=== PATIENT | male | born 1970 | race Caucasian/White ===

== ENCOUNTER 2018-08-13 10:45 | Emergency (ER) | payer SELFPAY ==
--- NOTE | 2018-08-13 12:04 | RADIOLOGY REPORT (SQ) ---
EXAM DESCRIPTION: FOOT RIGHT COMPLETE COMPLETED DATE/TIME: 08/13/2018 11:56 am REASON FOR STUDY: right foot pain at all toes COMPARISON: None. NUMBER OF VIEWS: Three views. TECHNIQUE: AP, lateral and oblique radiographic images acquired of the right foot. LIMITATIONS: None. FINDINGS: MINERALIZATION: Normal. BONES: No acute fracture or dislocation. No worrisome bone lesions. JOINTS: No effusions. SOFT TISSUES: No soft tissue swelling. No foreign body. OTHER: No other significant finding. IMPRESSION: NEGATIVE STUDY OF THE RIGHT FOOT. NO RADIOGRAPHIC EVIDENCE OF ACUTE INJURY. TECHNICAL DOCUMENTATION: JOB ID: [id number] [employer]- All Rights Reserved Reading location - IP/workstation name: [email or web address]
[2018-08-13 13:01] VITALS: BP 118/71
--- NOTE | 2018-08-13 13:13 | ER Document Report ---
HPI - HPI Time Seen by Provider: 08/13/18 11:27 Pain Level: 5 Notes: Patient is a 48-year-old male presenting to emergency department with complaints of right foot pain near his first and second toes that has been going on for approximately 3 months. He reports significant pain in the toes as well as some numbness and tingling. He also reports that there is been a foul-smelling drainage coming from his great toe. Patient denies any nausea, vomiting, diarrhea or fevers. Patient denies any history of diabetes. - CONSTITUTIONAL Constitutional: DENIES: Fever, Chills - MUSCULOSKELETAL Musculoskeletal: REPORTS: Extremity pain - right foot Past Medical History - General Information source: Patient - Social History Smoking Status: Current Every Day Smoker Frequency of alcohol use: Social Drug Abuse: Marijuana Family History: Reviewed & Not Pertinent Patient has suicidal ideation: No Patient has homicidal ideation: No - Medical History Medical History: Negative Renal/ Medical History: Denies: Hx Peritoneal Dialysis Past Surgical History: Reports: Hx Appendectomy, Hx Orthopedic Surgery - left elbow Vertical Provider Document - CONSTITUTIONAL Notes: PHYSICAL EXAMINATION: GENERAL: Well-appearing, well-nourished and in no acute distress. HEAD: Atraumatic, normocephalic. EYES: Pupils equal round extraocular movements intact, conjunctiva are normal. ENT: Nares patent NECK: Normal range of motion LUNGS: No respiratory distress Musculoskeletal: Normal range of motion, normal dorsalis pedis pulse. NEUROLOGICAL: Normal speech, normal gait. PSYCH: Normal mood, normal affect. SKIN: Erythema noted to right great and second toes. There is no streaking from the area. There is some yellowish drainage coming from underneath the great toe nailbed. - INFECTION CONTROL TRAVEL OUTSIDE OF THE [place] IN LAST 30 DAYS: No Course - Re-evaluation Re-evalutation: Patient is nontoxic appearing and his examination is consistent with cellulitis. Patient also has what appears to be a fungal infection underneath his nails. Patient will be started on p.o. antibiotics as well as antifungals. Patient highly encouraged to follow-up with a hoop flaring machine operator helper. A referral was given. - Vital Signs Vital signs: Temp Pulse Resp BP Pulse Ox 98.0 F 86 16 118/71 96 08/13/18 13:00 08/13/18 13:00 08/13/18 13:00 08/13/18 13:00 08/13/18 13:00 Discharge - Discharge Clinical Impression: Nail fungal infection Foot pain Qualifiers: Laterality: right Qualified Code(s): M79.671 - Pain in right foot Cellulitis Qualifiers: Site of cellulitis: other site Qualified Code(s): L03.818 - Cellulitis of other sites Condition: Stable Disposition: HOME, SELF-CARE Additional Instructions: Please take medications as prescribed continue to do Epsom salts soaks at least 3 times daily. Follow-up with the [facility] and/or the hoop flaring machine operator helper for follow-up. Call today to schedule an appointment. Return to the emergency department for any new or worsening symptoms to include worsening redness, red streaking from the area or increased swelling. Prescriptions: Cephalexin [Cephalexin 500 MG Tablet] 1 tab PO QID #40 tablet Fluconazole [Diflucan 100 Mg Tablet] 100 mg PO DAILY #7 tablet Forms: Return to Work Referrals: CODI CONNER DPM [ACTIVE STAFF] - Follow up as needed
== END 2018-08-13 13:27 | disposition home or self-care (01) ==
LOC: ER 10:45
DX: B35.1 Tinea unguium (principal); L03.818 Cellulitis of other sites; M79.671 Pain in right foot; R20.0 Anesthesia of skin; F17.200 Nicotine dependence, unspecified, uncomplicated
CPT/HCPCS: 82962; 99283

== ENCOUNTER 2019-02-02 15:07 | Emergency (ER) | payer SELFPAY ==
--- NOTE | 2019-02-02 15:22 | ER Document Report ---
ED Medical Screen (RME) - General Chief Complaint: Foot Pain Stated Complaint: RIGHT FOOT PAIN Time Seen by Provider: 02/02/19 15:19 Mode of Arrival: Carried Information source: Patient Notes: 39-year-old male presented to ED for complaint of pain to the to the front of his right foot all 5 toes. He states it is been getting progressively worse over the last several months. He states it feels like it is riding in a will have to get his foot cut off if something does not get done to stop it. He is alert oriented respirations regular nonlabored speaking in full sentences. He states that has a foul odor and it is keeping him awake at night. He states he does not have any history of diabetes or any other medical problems. He states he was saw in [place] about a month ago and they gave him some antibiotics he states the antibodies did not make any difference. I have greeted and performed a rapid initial assessment of this patient. A comprehensive ED assessment and evaluation of the patient, analysis of test results and completion of medical decision making process will be conducted by an additional ED providers. TRAVEL OUTSIDE OF THE [place] IN LAST 30 DAYS: No - Related Data Allergies/Adverse Reactions: No Known Allergies Allergy (Unverified 08/13/18 10:55) Past Medical History Renal/ Medical History: Denies: Hx Peritoneal Dialysis Past Surgical History: Reports: Hx Appendectomy, Hx Orthopedic Surgery - left elbow
--- NOTE | 2019-02-02 15:55 | RADIOLOGY REPORT (SQ) ---
EXAM DESCRIPTION: FOOT RIGHT COMPLETE COMPLETED DATE/TIME: 02/02/2019 3:44 pm REASON FOR STUDY: pain and swelling to great toe COMPARISON: None. NUMBER OF VIEWS: Two views. TECHNIQUE: AP and lateral without weight bearing radiographic images acquired of the right foot. LIMITATIONS: None. FINDINGS: MINERALIZATION: Normal. BONES: No acute fracture or dislocation. No worrisome bone lesions. No significant osteophytes. JOINTS: No erosions. No yara-articular osteopenia. No chondrocalcinosis. SOFT TISSUES: No swelling. No calcifications. OTHER: No other significant finding. IMPRESSION: NO SIGNIFICANT RADIOGRAPHIC ABNORMALITY. TECHNICAL DOCUMENTATION: JOB ID: [id number] [employer]- All Rights Reserved Reading location - IP/workstation name: [email or web address]
[2019-02-02] MEDS ORDERED: LIDOCAINE 1% INJ-PF (10 MG/ML) 30 ML SDV INJ ONE (16:23)
--- NOTE | 2019-02-02 16:23 | ER Document Report ---
HPI - HPI Time Seen by Provider: 02/02/19 15:19 Pain Level: 3 Context: Patient is a 48-year-old male who presents the emergency department with a chief complaint of right toes pain. This has been an ongoing problem for the past few months. He was seen here in the emergency department and again in [place]. He states that he continues to have pain although he has been on antibiotics. Patient also has an ingrown toe nail on his right great toe. Patient states vicky t he is not diabetic. - CONSTITUTIONAL Constitutional: DENIES: Fever, Chills - EENT EENT: DENIES: Sore Throat, Ear Pain - NEURO Neurology: DENIES: Headache, Weakness - RESPIRATORY Respiratory: DENIES: Trouble Breathing, Coughing - GASTROINTESTINAL Gastrointestinal: DENIES: Abdominal Pain, Nausea - REPRODUCTIVE Reproductive: DENIES: : - MUSCULOSKELETAL Musculoskeletal: REPORTS: Extremity pain - Right toes - DERM Skin Color: Normal Skin Problems: Rash - Right toes Notes: Right great toe lateral ingrown toenail Past Medical History - General Information source: Patient - Social History Smoking Status: Unknown if Ever Smoked Frequency of alcohol use: None Drug Abuse: None Family History: Reviewed & Not Pertinent Patient has suicidal ideation: No Patient has homicidal ideation: No Renal/ Medical History: Denies: Hx Peritoneal Dialysis Past Surgical History: Reports: Hx Appendectomy, Hx Orthopedic Surgery - left elbow Vertical Provider Document - CONSTITUTIONAL Agree With Documented VS: Yes Exam Limitations: No Limitations General Appearance: No Apparent Distress - INFECTION CONTROL TRAVEL OUTSIDE OF THE [place] IN LAST 30 DAYS: No - HEENT HEENT: Atraumatic, Normocephalic, PERRLA - NECK Neck: Normal Inspection - RESPIRATORY Respiratory: No Respiratory Distress - CARDIOVASCULAR Cardiovascular: Regular Rate, Regular Rhythm Pulses: Normal: Posterior tibial, Dorsalis pedis - MUSCULOSKELETAL/EXTREMETIES Musculoskeletal/Extremeties: Tender - Right great toe - NEURO Level of Consciousness: Awake, Alert, Appropriate Motor/Sensory: No Motor Deficit, No Sensory Deficit - DERM Integumentary: Warm, Dry, Rash - Right toes Notes: Ingrown toenail of right great toe with small amount of purulent drainage at tip of toe. Course - Re-evaluation Re-evalutation: 02/02/19 17:15 Partial toenail removal was done. Patient tolerated procedure well. I have advised the patient to follow-up with Dr. Clifford on for podiatry follow-up. He is in agreement with this plan. He will be started on clindamycin. No osteomyelitis noted on patient's x-ray. No acute fracture. Follow-up precautions were given. Verbal discharge instructions were given to the patient. They verbalized understanding. They are stable for discharge. Procedures - Nail Trephanation/Removal Right Foot Great toe Betadine prep applied: Yes Method of Drainage: Other - Right great toe partial removal Sterile Dressing Applied: Yes Finger Splint: No Discharge - Discharge Clinical Impression: Ingrowing toenail of right foot Cellulitis Qualifiers: Site of cellulitis: extremity Site of cellulitis of extremity: lower extremity Laterality: right Qualified Code(s): L03.115 - Cellulitis of right lower limb Condition: Stable Disposition: HOME, SELF-CARE Additional Instructions: You were seen today in the emergency department for toe pain. Partial toenail removal was done. Expect to have some bleeding from the area. Please follow-up with podiatry within the next 3 to 5 days. You are also being started on clindamycin, medication to help with the infection. Make sure you rest your foot, elevate it, and to protect it. If you are able to, wear shoes when walking outside. Wash your foot with the soap given to you twice a day. You are also being sent home with [place], pain medication. Please use this sparingly. Please take ibuprofen 600 mg every 6 hours to help decrease swelling. Prescriptions: Clindamycin HCl [Cleocin 150 mg Capsule] 300 mg PO Q6 7 Days #56 capsule Oxycodone HCl/Acetaminophen [Percocet 5-325 mg Tablet] 1 - 2 tab PO Q4H PRN #15 tablet PRN Reason: Referrals: CODI CONNER DPM [ACTIVE STAFF] - Follow up in 3-5 days
[2019-02-02 17:42] VITALS: BP 134/89
== END 2019-02-02 17:40 | disposition home or self-care (01) ==
LOC: ER 15:07
DX: L60.0 Ingrowing nail (principal); L03.115 Cellulitis of right lower limb; M79.674 Pain in right toe(s)
CPT/HCPCS: 99283; 73630; 11750; J3490